=== PATIENT | female | born 1975 | race Asian ===

== ENCOUNTER 2016-03-10 12:08 | Emergency (ER) | payer MEDICAID ==
[~2016-03-10] VITALS: Ht 160 cm; Wt 49.2 kg
[~2016-03-10 12:08] MED LIST: LANTUS2P SQ; NOVOLOGP2 SQ
[2016-03-10 12:14] VITALS: BP 156/93; PULSE 104; RESP 16; TEMP 98.5; O2SAT 100
[2016-03-10 12:34] VITALS: BP 163/91; PULSE 75; RESP 18; O2SAT 99
[2016-03-10] MEDS ORDERED: HYDR-3534 PO (12:40)
[2016-03-10] MEDS ORDERED: TIMO5SOL EACH EYE (12:40)
[2016-03-10] MEDS ORDERED: LATA0.002 EACH EYE (12:40)
[2016-03-10 12:48] VITALS: O2SAT 99
[2016-03-10 12:54] LABS: AUTOMATED NEUTROPHIL # 3.7 TH/MM3 (1.8-7.7); BASOPHIL # 0.1 TH/MM3 (0-0.2); BASOPHIL % 0.7 % (0.0-2.0); EOSINOPHIL # 0.4 TH/MM3 (0-0.4); EOSINOPHIL % 5.7 % (0.0-4.0); HEMATOCRIT 36.5 % (35.0-46.0); HEMO FLAGS DIFF FINAL; LYMPH % 34.7 % (9.0-44.0); LYMPHOCYTE # 2.5 TH/MM3 (1.0-4.8); MEAN CELL VOLUME 86.5 FL (80.0-100.0); MEAN CORPUSCULAR HEMOGLOBIN 29.6 PG (27.0-34.0); MEAN CORPUSCULAR HGB CONC 34.2 % (32.0-36.0); MONO % 7.3 % (0.0-8.0); NEUT % 51.6 % (16.0-70.0); PLATELET COUNT 298 TH/MM3 (150-450); RED BLOOD COUNT 4.22 MIL/MM3 (4.00-5.30); RED CELL DISTRIBUTION WIDTH 12.1 % (11.6-17.2); WHITE BLOOD COUNT 7.2 TH/MM3 (4.0-11.0)
[2016-03-10 13:03] LABS: CHLORIDE 107 MEQ/L (98-107); POTASSIUM 3.6 MEQ/L (3.5-5.1); SODIUM (NA) 143 MEQ/L (136-145)
[2016-03-10 13:06] LABS: ANION GAP 8 MEQ/L (5-15); BLOOD UREA NITROGEN 26 MG/DL (7-18)
[2016-03-10 13:10] LABS: GLOMERULAR FILTRATION RATE 55 ML/MIN (>89)
[2016-03-10 13:23] LABS: CREATINE KINASE 40 U/L (26-192)
--- NOTE | 2016-03-10 13:27 | PD ---
HPI Chief Complaint: Cardiac Complaint Time Seen by Provider: 12:35 Travel History International Travel<30 days: No Contact w/Intl Traveler<30days: No Traveled to known affect area: No History of Present Illness HPI 41 year-old woman presents to the emergency department complaining of swelling to her feet fingers face and legs. She is a history of type 1 diabetes, tobacco use, family history of heart disease and heart failure. She is worried that she may be having heart failure or heart problems. She has had palpitations. She's also having fatigue, and burning in her legs and she walks. No history of back problems. Blood sugars been very difficult to control, to 3 and 400s over the past several weeks. She she's been under a lot of stress because she was homeless for a while, and her son as psychiatric problems She otherwise has been feeling generally well. History Past Medical History Narrative Medical Diabetes Glaucoma Tetanus Vaccination: < 5 Years Influenza Vaccination: No PNEUMOCCOCAL Vaccine (Year): 2 LMP: last month Menopausal: Yes : 2 Para: 1 Social History Alcohol Use: Yes (SOCIAL) Tobacco Use: Yes (1pk) Allergies-Medications (Allergen,Severity, Reaction): Coded Allergies: Bactrim (Verified Adverse Reaction, Severe, SWELLING AND HIVES, 03/10/16) Penicillin (Verified Adverse Reaction, Severe, Swelling, 03/10/16) Sulfa (Verified Adverse Reaction, Severe, HIVES/SWELLING, 03/10/16) PT STATES NO LONGER ALLERGIC Reported Meds & Prescriptions Reported Meds & Active Scripts Active Reported Lortab (Hydrocodone-Acetaminophen) 7.5-325 Mg Tab 1 Tab PO Q6H PRN Latanoprost Opth Drops (Latanoprost) 0.005% Drops 1 Drop EACH EYE HS Refrigerate until opened. Timolol Opth Drops 0.25 % Soln 1 Drop EACH EYE DAILY Novolog Inj (Insulin Aspart) 1,000 Unit/10 Ml Vial 0 SQ DIRECTED Sliding Scale as directed. Lantus Inj (Insulin Glargine) 1,000 Unit/10 Ml Vial 18 Units SQ DAILY Review of Systems Except as stated in HPI: all other systems reviewed are Neg Physical Exam Narrative GENERAL: Well-appearing 41 year-old woman, no acute distress. SKIN: Warm and dry. HEAD: Atraumatic. Normocephalic. CARDIOVASCULAR: Regular rate and rhythm. No murmur appreciated. RESPIRATORY: No accessory muscle use. Clear to auscultation. Breath sounds equal bilaterally. GASTROINTESTINAL: Abdomen soft, non-tender, nondistended. Hepatic and splenic margins not palpable. MUSCULOSKELETAL: No obvious deformities. No edema. NEUROLOGICAL: Awake and alert. No obvious cranial nerve deficits. Motor grossly within normal limits. Normal speech. PSYCHIATRIC: Anxious, on the verge of tears. Data Data Last Documented VS Vital Signs Date Time Temp Pulse Resp B/P Pulse Ox O2 Delivery O2 Flow Rate FiO2 03/10/16 13:44 98 18 138/82 98 Room Air 03/10/16 12:14 98.5 Orders Electrocardiogram (03/10/16 12:47) Complete Blood Count With Diff (03/10/16 12:47) Basic Metabolic Panel (Bmp) (03/10/16 12:47) Ckmb (Isoenzyme) Profile (03/10/16 12:47) Troponin I (03/10/16 12:47) Chest, Single Ap (03/10/16 12:47) Iv Access Insert/Monitor (03/10/16 12:47) Ecg Monitoring (03/10/16 12:47) Oxygen Administration (03/10/16 12:47) Oximetry (03/10/16 12:47) Labs Laboratory Tests Test 03/10/16 12:45 White Blood Count 7.2 TH/MM3 Red Blood Count 4.22 MIL/MM3 Hemoglobin 12.5 GM/DL Hematocrit 36.5 % Mean Corpuscular Volume 86.5 FL Mean Corpuscular Hemoglobin 29.6 PG Mean Corpuscular Hemoglobin 34.2 % Concent Red Cell Distribution Width 12.1 % Platelet Count 298 TH/MM3 Mean Platelet Volume 7.0 FL Neutrophils (%) (Auto) 51.6 % Lymphocytes (%) (Auto) 34.7 % Monocytes (%) (Auto) 7.3 % Eosinophils (%) (Auto) 5.7 % Basophils (%) (Auto) 0.7 % Neutrophils # (Auto) 3.7 TH/MM3 Lymphocytes # (Auto) 2.5 TH/MM3 Monocytes # (Auto) 0.5 TH/MM3 Eosinophils # (Auto) 0.4 TH/MM3 Basophils # (Auto) 0.1 TH/MM3 CBC Comment DIFF FINAL Differential Comment Sodium Level 143 MEQ/L Potassium Level 3.6 MEQ/L Chloride Level 107 MEQ/L Carbon Dioxide Level 28.0 MEQ/L Anion Gap 8 MEQ/L Blood Urea Nitrogen 26 MG/DL Creatinine 1.10 MG/DL Estimat Glomerular Filtration 55 ML/MIN Rate Random Glucose 273 MG/DL Calcium Level 8.4 MG/DL Total Creatine Kinase 40 U/L Troponin I LESS THAN 0.02 NG/ML MDM Medical Decision Making Medical Screen Exam Complete: Yes Emergency Medical Condition: Yes Interpretation(s) Review of EKG: Normal sinus rhythm at a rate of 97, normal axis, normal intervals, no ischemia. LABS: CBC is unremarkable. CMP remarkable for mild kidney disease. Troponin negative. Chest x-ray: Negative. Differential Diagnosis Anxiety, panic symptoms, dehydration, heart failure, kidney failure, other Narrative Course Medical decision making INITIAL: Is a 41 year-old woman with poorly controlled diabetes, lots of social stressors, presents complaining of swelling and concern for heart problems. We' ll check her for kidney disease. We'll check an x-ray. I don't see any evidence of heart failure. Pending a lot of this is anxiety. Some may have some today with reportedly controlled diabetes. I recommend that she increase her long-acting insulin and pain more attention to her diet because her fasting blood sugar still significantly in the 2 to 300s. Diagnosis Primary Impression: Leg swelling Additional Impressions: Chronic kidney disease Qualified Code: N18.9 - Chronic kidney disease, unspecified stage Diabetes Qualified Code: E10.22 - Type 1 diabetes mellitus with diabetic chronic kidney disease, unspecified CKD stage Additional Instructions: Focus on getting your blood sugar under better control. Drink plenty of fluids stay well-hydrated. Consider smoking cessation. Follow-up with your primary doctor as planned. Return to the emergency department for any new or worsening symptoms. Disposition: 01 DISCHARGE HOME Condition: Stable True Bazzi MD Mar 10, 2016 13:27
[2016-03-10 13:44] VITALS: BP 138/82; PULSE 98; RESP 18; O2SAT 98
--- NOTE | 2016-03-10 13:48 | RADHPO ---
EXAM DATE/TIME: 03/10/2016 13:23 [facility] COMPARISON: CHEST SINGLE AP, October 02, 2015, 15:46. INDICATIONS : Swelling to lower legs, hands, MEDICAL HISTORY : Diabetes mellitus type I. SURGICAL HISTORY : None. ENCOUNTER: Initial ACUITY: 1 month PAIN SCORE: 0/10 LOCATION: Bilateral chest FINDINGS: Portable AP view of the chest demonstrates a normal-sized cardiac silhouette. No effusion, consolidat ion, or pneumothorax is visualized. The bones and soft tissues demonstrate no acute abnormality. CONCLUSION: No acute cardiopulmonary abnormality is identified. Good Whitney MD on March 10, 2016 at 13:47 Board Certified Radiologist. This report was verified electronically.
[2016-03-10 14:56] VITALS: BP 138/74
--- NOTE | 2016-03-10 22:57 | EKG ---
Date Performed: 03/10/2016 Time Performed: 12:23:46 PTAGE: 41 years EKG: Sinus rhythm Normal ECG PREVIOUS TRACING : 08/24/2015 13.15 DOCTOR: Salomón Thrasher Interpretating Date/Time 03/10/2016 22:57:26
[2016-05-17] MEDS ORDERED: ATOR10TA15 PO (11:52)
[2016-05-17] MEDS ORDERED: ERGO1CAP10 PO (11:52)
[2016-05-17] MEDS ORDERED: LANTUS2P SQ (11:52)
[2016-05-17] MEDS ORDERED: GLUCTES12 (11:59)
[2016-07-09] MEDS ORDERED: INSU-170 SQ (09:45)
[2016-07-12] MEDS ORDERED: TIMO0.255 EACH EYE (10:28)
[2016-07-12] MEDS ORDERED: ERGO1CAP30 PO (10:28)
[2016-07-12] MEDS ORDERED: INSU-150 (10:28)
[2016-07-12] MEDS ORDERED: LANTUS2P SQ (10:59)
[2016-07-26] MEDS ORDERED: INSU-150 (15:32)
== END 2016-03-10 15:05 | disposition home or self-care (01) ==
LOC: PHED 12:08
DX: R22.43 Localized swelling, mass and lump, lower limb, bilateral (principal); N18.9 Chronic kidney disease, unspecified; E10.22 Type 1 diabetes mellitus with diabetic chronic kidney disease; R00.2 Palpitations; R53.83 Other fatigue; H40.9 Unspecified glaucoma; F17.200 Nicotine dependence, unspecified, uncomplicated; Z79.4 Long term (current) use of insulin
CPT/HCPCS: 71010; 80048; 82550; 84484; 85025; 93005

== ENCOUNTER 2016-04-02 22:45 | Emergency (ER) | payer MEDICAID ==
[~2016-04-02] VITALS: Ht 160 cm; Wt 48.0 kg
[~2016-04-02 22:45] MED LIST changes: +HYDR-3534 PO; +LATA0.002 EACH EYE; +TIMO5SOL EACH EYE
[2016-04-02 22:47] VITALS: BP 191/98; PULSE 115; RESP 16; TEMP 98.5; O2SAT 100
[2016-04-02 23:09] VITALS: BP 185/91
[2016-05-17] MEDS ORDERED: ERGO1CAP10 PO (11:52)
[2016-05-17] MEDS ORDERED: LANTUS2P SQ (11:52)
[2016-05-17] MEDS ORDERED: ATOR10TA15 PO (11:52)
[2016-05-17] MEDS ORDERED: GLUCTES12 (11:59)
[2016-07-09] MEDS ORDERED: INSU-170 SQ (09:45)
[2016-07-12] MEDS ORDERED: INSU-150 (10:28)
[2016-07-12] MEDS ORDERED: TIMO0.255 EACH EYE (10:28)
[2016-07-12] MEDS ORDERED: ERGO1CAP30 PO (10:28)
[2016-07-12] MEDS ORDERED: LANTUS2P SQ (10:59)
[2016-07-26] MEDS ORDERED: INSU-150 (15:32)
== END 2016-04-03 03:39 | disposition left against medical advice (07) ==
LOC: NED 22:45
DX: R21 Rash and other nonspecific skin eruption (principal)
CPT/HCPCS: 99281

== ENCOUNTER 2017-04-15 15:46 | Emergency (ER) | payer MEDICAID ==
[~2017-04-15] VITALS: Ht 157.5 cm; Wt 50.0 kg
[~2017-04-15 15:46] MED LIST changes: +ATOR10TA15 PO; +GLUCTES12; +INSU-150; +TIMO0.255 EACH EYE; -TIMO5SOL EACH EYE; +VITA500012 PO
[2017-04-15 16:08] VITALS: BP 140/79; PULSE 107; RESP 18; TEMP 99.7; O2SAT 99
[2017-04-15] MEDS ORDERED: ONDANSETRON ODT 4 MG TAB PO ONE (17:00)
[2017-04-15] MEDS ORDERED: KETOROLAC TROMETHAMINE 60 MG/2 ML (IM) VIAL IM ONE (17:00)
[2017-04-15] MEDS ORDERED: MORPHINE SULFATE 2 MG/ML INJ IM ONE (17:00)
[2017-04-15 17:24] LABS: BILIRUBIN, URINE NEG (NEG); BLOOD, URINE MOD (NEG); GLUCOSE,URINE NEG (NEG); KETONE, URINE NEG (NEG); NITRITE,URINE NEG (NEG); PH, URINE 5.5 (5.0-8.5); URINE LEUKOCYTE ESTERASE NEG (NEG)
[2017-04-15 17:29] LABS: URINE COLOR YELLOW (YELLW/STRAW)
[2017-04-15 17:30] LABS: BACTERIA, URINE MOD /hpf; MUCUS URINE FEW /lpf (OCC); RBC, URINE 0-3 /hpf (0-3); SQUAMOUS EPITHELIAL CELL URINE > 8 /hpf (0-5)
[2017-04-15] MEDS ORDERED: HYDR-3580 (17:41)
--- NOTE | 2017-04-15 18:01 | RADRPT ---
EXAM DATE/TIME: 04/15/2017 17:38 [facility] COMPARISON: No previous studies available for comparison. INDICATIONS : Right lower back pain. ORAL CONTRAST: No oral contrast ingested. RADIATION DOSE: 16.9 CTDIvol (mGy) MEDICAL HISTORY : Hypertension. Diabetes. SURGICAL HISTORY : Tubal ligation. section. ENCOUNTER: Initial ACUITY: 2 days PAIN SCALE: 4/10 LOCATION: Right lower quadrant TECHNIQUE: Volumetric scanning of the abdomen and pelvis was performed. Using automated exposure control and ad justment of the mA and/or kV according to patient size, radiation dose was kept as low as reasonably achievable to obtain optimal diagnostic quality images. DICOM format image data is available electro nically for review and comparison. FINDINGS: Examination of the lung bases demonstrates no abnormality. No pleural fluid is identified. No pulmona ry nodules are present. The gallbladder and pancreas are unremarkable. No intrahepatic or extrahepati c ductal dilatation is seen. The adrenal glands are unremarkable. There are multiple small bilateral nonobstructing renal stones largest measuring 3 mm. No hydronephrosis or hydroureter is seen. Examination of the pelvis demonstrates no evidence of free fluid or pelvic mass. No abnormally enlarg ed inguinal or retroperitoneal lymph nodes are present. The bladder is unremarkable. CONCLUSION: 1. No evidence of acute abdominal or pelvic process. No masses are identified. 2. Small bilateral nonobstructing renal stones Davion Ontiveros MD on April 15, 2017 at 17:57 Board Certified Radiologist. This report was verified electronically.
[2017-04-15 18:05] VITALS: BP 159/92; PULSE 98; RESP 16; O2SAT 97
--- NOTE | 2017-04-15 18:13 | RADRPT ---
EXAM DATE/TIME: 04/15/2017 17:54 [facility] COMPARISON: CHEST SINGLE AP, March 10, 2016, 13:23. INDICATIONS : Cough and right lower rib pain for 2 days. MEDICAL HISTORY : Diabetes. SURGICAL HISTORY : None. ENCOUNTER: Initial ACUITY: 2 days PAIN SCORE: 3/10 LOCATION: Right lower chest FINDINGS: A single view of the chest demonstrates the lungs to be symmetrically aerated without evidence of mas s, infiltrate or effusion. The cardiomediastinal contours are unremarkable. Osseous structures are intact. CONCLUSION: 1. No acute cardiopulmonary disease. Davion Ontiveros MD on April 15, 2017 at 18:11 Board Certified Radiologist. This report was verified electronically.
[2017-04-15] MEDS ORDERED: DICL75TA PO (18:39)
[2017-04-15] MEDS ORDERED: CIPR-9 PO (18:39)
[2017-04-15] MEDS ORDERED: ROBA500T PO (18:39)
--- NOTE | 2017-04-15 18:43 | PD ---
HPI Chief Complaint: Back/ Neck Pain or Injury Time Seen by Provider: 16:43 Travel History International Travel<30 days: No Contact w/Intl Traveler<30days: No Traveled to known affect area: No History of Present Illness HPI 42-year-old female that presents to the ED for evaluation of severe right flank pain with no injury. Per patient she's had this discomfort for the past 2 days but does become more unbearable since today. She states initially having cold- like symptoms she's been coughing a lot which makes the pain worse. She is not sure what happened to it. She denies any actual injury or trauma. He rates her pain as 8 out of 10. No urinary or bowel movement issues. She is very sensitive to touch and the back. She denies any liver or kidney issues as far she knows. No history of kidney stones. Allergies to sulfa and penicillin. Has not seen anybody for this. She took a Lortab which is prescribed to her and did not improve her symptoms which is was concerning for her. No nausea or vomiting. No other medical issues at this time. PFSH Past Medical History Hx Anticoagulant Therapy: No Arthritis: No Asthma: No Autoimmune Disease: No Blood Disorders: No Bipolar Disorder: Yes Anxiety: Yes Depression: Yes Heart Rhythm Problems: No Cancer: No Cardiovascular Problems: Yes (HTN, CHOL) High Cholesterol: Yes Chemotherapy: No Chest Pain: No Congestive Heart Failure: No COPD: No Cerebrovascular Accident: No Diabetes: Yes Patient Takes Glucophage: No Diminished Hearing: No Endocrine: Yes Gastrointestinal Disorders: Yes (OCCASIONAL GERD) GERD: Yes Glaucoma: Yes Genitourinary: No Headaches: No Hepatitis: No Hiatal Hernia: No Hypertension: No Immune Disorder: No Implanted Vascular Access Dvce: No Kidney Stones: No Musculoskeletal: No Neurologic: No Psychiatric: Yes (CLAUSTROPHOBIC) Reproductive: No Respiratory: No Immunizations Current: Yes Migraines: No Myocardial Infarction: No Radiation Therapy: No Renal Failure: No Seizures: No Sickle Cell Disease: No Sleep Apnea: No Thyroid Disease: No Ulcer: No Tetanus Vaccination: < 5 Years Influenza Vaccination: No PNEUMOCCOCAL Vaccine (Year): 2 ?: Not Menopausal: Yes : 2 Para: 1 : 1 Tubal Ligation: Yes Past Surgical History Abdominal Surgery: No AICD: No Appendectomy: No Arteriovenous Shunt: No Body Medical Devices: Shunt left eye Cardiac Surgery: No Section: Yes Cholecystectomy: No Ear Surgery: No Endocrine Surgery: No Eye Surgery: Yes (L EYE STENT REMOVED 02/24/14 , MULTIPLE, BLEB TO STENT) Genitourinary Surgery: No Gynecologic Surgery: Yes ( ENDOMETRIAL ABLATION; LEFT OOPHERECTOMY, TUBAL LIGATION) Insulin Pump: No Joint Replacement: No Neurologic Surgery: No Oral Surgery: No Pacemaker: No Thoracic Surgery: No Other Surgery: Yes (BL EYE SURGERY) Social History Alcohol Use: Yes (SOCIAL) Tobacco Use: Yes (1pk) Substance Use: No Allergies-Medications (Allergen,Severity, Reaction): Coded Allergies: Sulfa (Sulfonamide Antibiotics) (Unverified Adverse Reaction, Severe, HIVES/SWELLING, 04/15/17) PT STATES NO LONGER ALLERGIC penicillin G (Unverified Adverse Reaction, Severe, Swelling, 04/15/17) sulfamethoxazole (Unverified Adverse Reaction, Severe, SWELLING AND HIVES , 04/15/17) trimethoprim (Unverified Adverse Reaction, Severe, SWELLING AND HIVES, ) Reported Meds & Prescriptions Reported Meds & Active Scripts Active Cipro (Ciprofloxacin HCl) 500 Mg Tab 500 Mg PO BID 10 Days Robaxin (Methocarbamol) 500 Mg Tab 500 Mg PO TID Diclofenac Sodium DR (Diclofenac Sodium) 75 Mg Tabdr 75 Mg PO BID PRN Novolog Inj (Insulin Aspart) 1,000 Unit/10 Ml Vial 0 SQ DIRECTED Sliding scale: 1 unit per 15 g of carbohydrate. Lantus Inj (Insulin Glargine) 1,000 Unit/10 Ml Vial 12 Units SQ Q12HR 9 AM and 9 PM Reported Hydrocodone-Acetamin 7.5-325 (Hydrocodone/Acetaminophen) 7.5 Mg-325 Mg Tablet Unknown Dose Review of Systems Except as stated in HPI: all other systems reviewed are Neg Physical Exam Narrative GENERAL: SKIN: Warm and dry. HEAD: Atraumatic. Normocephalic. EYES: Pupils equal and round. No scleral icterus. No injection or drainage. ENT: No nasal bleeding or discharge. Mucous membranes pink and moist. Tongue is midline. No uvula deviation. NECK: Trachea midline. No JVD. CARDIOVASCULAR: Regular rate and rhythm. RESPIRATORY: No accessory muscle use. Clear to auscultation. Breath sounds equal bilaterally. GASTROINTESTINAL: Abdomen soft, non-tender, nondistended. Hepatic and splenic margins not palpable. MUSCULOSKELETAL: Extremities without clubbing, cyanosis, or edema. No obvious deformities. Patient has reproducible pain on the musculature on the right flank. No obvious CVA tenderness for heart assess as patient is very tender with any touch. No lumbar, thoracic, cervical spine tenderness to palpation. NEUROLOGICAL: Awake and alert. No obvious cranial nerve deficits. Motor grossly within normal limits. Five out of 5 muscle strength in the arms and legs. Normal speech. PSYCHIATRIC: Appropriate mood and affect; insight and judgment normal. Data Data Last Documented VS Vital Signs Date Time Temp Pulse Resp B/P (MAP) Pulse Ox O2 Delivery O2 Flow Rate FiO2 04/15/17 18:05 98 16 159/92 (114) 97 Room Air 04/15/17 16:08 99.7 Orders Orders Chest, Single Ap (04/15/17 16:56) Ct Abd/Pel W/O Iv Contrast (04/15/17 16:56) Urinalysis - C+S If Indicated (04/15/17 16:56) Ketorolac Inj (Toradol Inj) (04/15/17 17:00) Ed Urine Pregnancytest Poc (04/15/17 16:56) Morphine Inj (Morphine Inj) (04/15/17 17:00) Ondansetron Odt (Zofran Odt) (04/15/17 17:00) Urine Culture (04/15/17 17:00) Ciprofloxacin (Cipro) (04/15/17 18:45) Ed Discharge Order (04/15/17 18:33) Labs Laboratory Tests Test 04/15/17 17:00 Urine Color YELLOW Urine Turbidity CLOUDY Urine pH 5.5 Urine Specific [place] 1.020 Urine Protein 300 OR GREATER mg/dL Urine Glucose (UA) NEG mg/dL Urine Ketones NEG mg/dL Urine Occult Blood MOD Urine Nitrite NEG Urine Bilirubin NEG Urine Leukocyte Esterase NEG Urine RBC 0-3 /hpf Urine WBC 3-5 /hpf Urine Squamous Epithelial Cells > 8 /hpf Urine Bacteria MOD /hpf Urine Mucus FEW /lpf Microscopic Urinalysis Comment CULTURE INDICATED MDM Medical Decision Making Medical Screen Exam Complete: Yes Emergency Medical Condition: Yes Medical Record Reviewed: Yes Interpretation(s) UA shows some bacteria and blood CT abdomen shows some kidney stones otherwise unremarcable. CXR negative. Differential Diagnosis UTI versus pyelonephritis versus kidney stone versus flank pain versus muscle strain Narrative Course 42-year-old female that presents to the ED for evaluation of right flank pain. Patient was properly examined and was found to have signs and symptoms which. More consistent with muscle strain likely from coughing versus kidney disease. The recommend labs and imaging. Patient agrees. Labs and imaging were done and did show some bacteria in the urine which could be related to possible infection. Otherwise imaging was unremarkable other than for some kidney stones on the kidney but no obstruction. She could also be passing stones. She does have blood in her urine. At this time I believe is more related to possible infection. We'll treat with antibiotic. Given prescription for anti- inflammatory and muscle relaxant as patient already takes pain medications. She was given pain medication here with some relief. Told to follow up with PCP. See ED worsening symptoms. Diagnosis Primary Impression: Cystitis Additional Impression: Flank pain, acute Patient Instructions: General Instructions Additional Instructions: Take medications as prescribed. Follow-up with PCP. See ED for any worsening symptoms. Do not drink or drive while taking pain medication. Apply ice or heat as needed for pain Med/Other Pt SpecificInfo: Prescription(s) given Scripts Ciprofloxacin (Cipro) 500 Mg Tab 500 MG PO BID for Infection for 10 Days, #20 TAB 0 Refills Prov: Josh Mccartney MD 04/15/17 Methocarbamol (Robaxin) 500 Mg Tab 500 MG PO TID for Muscle Spasm, #20 TAB 0 Refills Prov: Josh Mccartney MD 04/15/[address] (Diclofenac Sodium DR) 75 Mg Tabdr 75 MG PO BID Y for PAIN SCALE 1 TO 10, #20 TAB 0 Refills Prov: Josh Mccartney MD 04/15/17 Disposition: 01 DISCHARGE HOME Condition: Stable Jose A Mcgowan Apr 15, 2017 18:43
[2017-04-15] MEDS ORDERED: BENZ100 PO (18:44)
[2017-04-15] MEDS ORDERED: CIPROFLOXACIN 500 MG TAB PO ONE (18:45)
[2017-04-16] MEDS ORDERED: PROM25TA10 PO (17:10)
== END 2017-04-15 19:04 | disposition home or self-care (01) ==
LOC: PHEFT 15:46
DX: N30.90 Cystitis, unspecified without hematuria (principal); R10.9 Unspecified abdominal pain; I10 Essential (primary) hypertension; E78.00 Pure hypercholesterolemia, unspecified; E11.9 Type 2 diabetes mellitus without complications; K21.9 Gastro-esophageal reflux disease without esophagitis; F31.9 Bipolar disorder, unspecified; F17.210 Nicotine dependence, cigarettes, uncomplicated; Z79.4 Long term (current) use of insulin
CPT/HCPCS: 71045; 74176; 81001; 84703; 87086; 96372; 99285; J1885; J2270

== ENCOUNTER 2017-04-16 14:15 | Emergency (ER) | payer MEDICAID ==
[~2017-04-16] VITALS: Ht 157.5 cm; Wt 52.0 kg
[~2017-04-16 14:15] MED LIST changes: +BENZ100 PO; +CIPR-9 PO; +DICL75TA PO; +HYDR-3580; +ROBA500T PO
[2017-04-16 14:19] VITALS: BP 109/68; PULSE 103; RESP 16; TEMP 98.6; O2SAT 97
[2017-04-16] MEDS ORDERED: SODIUM CHLORIDE 0.9% FLUSH 10 ML FLUSH IV FLUSH PRN (14:45)
[2017-04-16] MEDS ORDERED: SODIUM CHLOR 0.9% 1000 ML INJ 1,000 ML IV SCH (14:54)
[2017-04-16] MEDS ORDERED: ONDANSETRON HCL 4 MG/2 ML VIAL IVP ONE (15:00)
[2017-04-16] MEDS ORDERED: KETOROLAC TROMETHAMINE 30 MG/ML (IVP) VIAL IVP ONE (15:00)
[2017-04-16 15:06] LABS: AUTOMATED NEUTROPHIL # 1.9 TH/MM3 (1.8-7.7); BASOPHIL # 0.1 TH/MM3 (0-0.2); BASOPHIL % 1.5 % (0.0-2.0); EOSINOPHIL # 0.1 TH/MM3 (0-0.4); EOSINOPHIL % 2.2 % (0.0-4.0); HEMOGLOBIN 12.9 GM/DL (11.6-15.3); LYMPH % 30.1 % (9.0-44.0); LYMPHOCYTE # 1.2 TH/MM3 (1.0-4.8); MEAN CORPUSCULAR HEMOGLOBIN 28.9 PG (27.0-34.0); MEAN CORPUSCULAR HGB CONC 33.2 % (32.0-36.0); MEAN PLATELET VOLUME 7.9 FL (7.0-11.0); MONO % 13.9 % (0.0-8.0); MONOCYTE # 0.5 TH/MM3 (0-0.9); NEUT % 52.3 % (16.0-70.0); PLATELET COUNT 177 TH/MM3 (150-450); RED BLOOD COUNT 4.48 MIL/MM3 (4.00-5.30); RED CELL DISTRIBUTION WIDTH 12.4 % (11.6-17.2); WHITE BLOOD COUNT 3.8 TH/MM3 (4.0-11.0)
[2017-04-16 15:15] LABS: CHLORIDE 99 MEQ/L (98-107); SODIUM (NA) 134 MEQ/L (136-145)
[2017-04-16 15:19] LABS: ALBUMIN 3.1 GM/DL (3.4-5.0); BICARBONATE 27.3 MEQ/L (21.0-32.0); CALCIUM 8.2 MG/DL (8.5-10.1); GLUCOSE,RANDOM 315 MG/DL (74-106)
[2017-04-16 15:20] LABS: BLOOD UREA NITROGEN 30 MG/DL (7-18)
[2017-04-16 15:22] LABS: ALT (GPT) 20 U/L (10-53); AST (GOT) 12 U/L (15-37); GLOMERULAR FILTRATION RATE 38 ML/MIN (>89)
[2017-04-16 15:24] LABS: TOTAL BILIRUBIN ADULT 0.3 MG/DL (0.2-1.0); TOTAL PROTEIN 6.9 GM/DL (6.4-8.2)
[2017-04-16 15:25] LABS: ALKALINE PHOSPHATASE 72 U/L (45-117)
[2017-04-16 15:44] LABS: BILIRUBIN, URINE NEG (NEG); BLOOD, URINE MOD (NEG); GLUCOSE,URINE 1000 OR GREATER mg/dL (NEG); KETONE, URINE 15 mg/dL (NEG); NITRITE,URINE NEG (NEG); PH, URINE 5.5 (5.0-8.5); URINE LEUKOCYTE ESTERASE NEG (NEG)
[2017-04-16 15:54] LABS: URINE COLOR YELLOW (YELLW/STRAW)
[2017-04-16 15:55] LABS: BACTERIA, URINE FEW /hpf; WBC, URINE 0-2 /hpf (0-5)
[2017-04-16] MEDS ORDERED: MORPHINE SULFATE 4 MG/ML INJ IV PUSH ONE (16:00)
--- NOTE | 2017-04-16 16:08 | PD ---
HPI Chief Complaint: Flank pain Time Seen by Provider: 14:33 Travel History International Travel<30 days: No Contact w/Intl Traveler<30days: No Traveled to known affect area: No History of Present Illness HPI This is a 42-year-old female who returns for right flank pain. She states that she has had a day and a half of pain in the right flank/mid back. She was seen in the emergency department yesterday and had urinalysis and CT abdomen and pelvis without IV contrast. She states that she continues to have the pain despite taking diclofenac and muscle relaxer. This morning, she developed nonbilious, nonbloody emesis after taking diclofenac. She did not take her blood sugar or her insulin today. She denies fever, chills. Patient states that she had recently been coughing and is not sure if she pulled a muscle. No urinary urgency, frequency, dysuria, hematuria. No diarrhea. No vaginal discharge or bleeding. No focal weakness, numbness, tingling, saddle paresthesias, bowel or bladder dysfunction. PFSH Past Medical History Hx Anticoagulant Therapy: No Arthritis: No Asthma: No Autoimmune Disease: No Blood Disorders: No Bipolar Disorder: Yes Anxiety: Yes Depression: Yes Heart Rhythm Problems: No Cancer: No Cardiovascular Problems: Yes (HTN, CHOL) High Cholesterol: Yes Chemotherapy: No Chest Pain: No Congestive Heart Failure: No COPD: No Cerebrovascular Accident: No Diabetes: Yes Patient Takes Glucophage: No Diminished Hearing: No Endocrine: Yes Gastrointestinal Disorders: Yes (OCCASIONAL GERD) GERD: Yes Glaucoma: Yes Genitourinary: No Headaches: No Hepatitis: No Hiatal Hernia: No Hypertension: No Immune Disorder: No Implanted Vascular Access Dvce: No Kidney Stones: No Musculoskeletal: No Neurologic: No Psychiatric: Yes (CLAUSTROPHOBIC) Reproductive: No Respiratory: No Immunizations Current: Yes Migraines: No Myocardial Infarction: No Radiation Therapy: No Renal Failure: No Seizures: No Sickle Cell Disease: No Sleep Apnea: No Thyroid Disease: No Ulcer: No PNEUMOCCOCAL Vaccine (Year): 2 ?: Not Menopausal: Yes : 2 Para: 1 : 1 Tubal Ligation: Yes Past Surgical History Abdominal Surgery: No AICD: No Appendectomy: No Arteriovenous Shunt: No Body Medical Devices: Shunt left eye Cardiac Surgery: No Section: Yes Cholecystectomy: No Ear Surgery: No Endocrine Surgery: No Eye Surgery: Yes (L EYE STENT REMOVED 02/24/14 , MULTIPLE, BLEB TO STENT) Genitourinary Surgery: No Gynecologic Surgery: Yes ( ENDOMETRIAL ABLATION; LEFT OOPHERECTOMY, TUBAL LIGATION) Insulin Pump: No Joint Replacement: No Neurologic Surgery: No Oral Surgery: No Pacemaker: No Thoracic Surgery: No Other Surgery: Yes (BL EYE SURGERY) Social History Alcohol Use: Yes (SOCIAL) Tobacco Use: Yes (1pk) Substance Use: No Allergies-Medications (Allergen,Severity, Reaction): Coded Allergies: Sulfa (Sulfonamide Antibiotics) (Unverified Adverse Reaction, Severe, HIVES/SWELLING, 04/16/17) PT STATES NO LONGER ALLERGIC penicillin G (Unverified Adverse Reaction, Severe, Swelling, 04/16/17) sulfamethoxazole (Unverified Adverse Reaction, Severe, SWELLING AND HIVES , 04/16/17) trimethoprim (Unverified Adverse Reaction, Severe, SWELLING AND HIVES, ) Reported Meds & Prescriptions Reported Meds & Active Scripts Active Phenergan (Promethazine HCl) 25 Mg Tablet 25 Mg PO Q6H PRN Tessalon Perles (Benzonatate) 100 Mg Cap 100 Mg PO TID PRN Cipro (Ciprofloxacin HCl) 500 Mg Tab 500 Mg PO BID 10 Days Robaxin (Methocarbamol) 500 Mg Tab 500 Mg PO TID Diclofenac Sodium DR (Diclofenac Sodium) 75 Mg Tabdr 75 Mg PO BID PRN Novolog Inj (Insulin Aspart) 1,000 Unit/10 Ml Vial 0 SQ DIRECTED Sliding scale: 1 unit per 15 g of carbohydrate. Lantus Inj (Insulin Glargine) 1,000 Unit/10 Ml Vial 12 Units SQ Q12HR 9 AM and 9 PM Reported Hydrocodone-Acetamin 7.5-325 (Hydrocodone/Acetaminophen) 7.5 Mg-325 Mg Tablet Unknown Dose Review of Systems Except as stated in HPI: all other systems reviewed are Neg Physical Exam Narrative GENERAL: Alert, well nourished, well appearing patient resting on the bed in no acute distress. Vital Signs reviewed SKIN: Focused skin assessment warm/dry. No vesicular lesions noted on back HEAD: Atraumatic. Normocephalic. EYES: Pupils equal and round. No scleral icterus. No injection or drainage. ENT: No nasal bleeding or discharge. Mucous membranes pink and moist. NECK: Trachea midline. No JVD. Spontaneous, painless full range of motion with no meningismus CARDIOVASCULAR: Regular rate and rhythm. No murmur appreciated. Extremities warm and well perfused with bounding peripheral pulses RESPIRATORY: No accessory muscle use. Clear to auscultation. Breath sounds equal bilaterally. Breathing easily and speaking in full sentences GASTROINTESTINAL: Abdomen soft, mildly tender in right mid abdomen, nondistended. Normal bowel sounds. No rigid, rebound, guarding. Mild right CVA tenderness/paraspinal tenderness. No tenderness along midline thoracic or lumbar spine MUSCULOSKELETAL: No obvious deformities. No clubbing. No cyanosis. No edema. Compartments are soft NEUROLOGICAL: Awake and alert. No obvious cranial nerve deficits. Motor grossly within normal limits. Normal speech. Sensation intact. Normal gait Data Data Last Documented VS Vital Signs Date Time Temp Pulse Resp B/P (MAP) Pulse Ox O2 Delivery O2 Flow Rate FiO2 04/16/17 16:32 99 20 149/95 (113) 99 04/16/17 14:19 98.6 Orders Orders Complete Blood Count With Diff (04/16/17 14:42) Comprehensive Metabolic Panel (04/16/17 14:42) Lipase (04/16/17 14:42) Urinalysis - C+S If Indicated (04/16/17 14:42) Iv Access Insert/Monitor (04/16/17 14:42) Sodium Chloride 0.9% Flush (Ns Flush) (04/16/17 14:45) Ct Abd/Pel W Iv Contrast(Rout) (04/16/17 14:54) Ondansetron Inj (Zofran Inj) (04/16/17 15:00) Sodium Chlor 0.9% 1000 Ml Inj (Ns 1000 M (04/16/17 14:54) Ketorolac Inj (Toradol Inj) (04/16/17 15:00) Ed Urine Pregnancytest Poc (04/16/17 14:54) Morphine Inj (Morphine Inj) (04/16/17 16:00) Iodixanol 320 Inj (Rad Ct) (Visipaque 32 (04/16/17 16:12) Insulin Human Regular Inj (Novolin R Inj (04/16/17 17:00) Ed Discharge Order (04/16/17 17:43) Labs Laboratory Tests Test 04/16/17 15:00 04/16/17 15:40 White Blood Count 3.8 TH/MM3 Red Blood Count 4.48 MIL/MM3 Hemoglobin 12.9 GM/DL Hematocrit 39.0 % Mean Corpuscular Volume 87.0 FL Mean Corpuscular Hemoglobin 28.9 PG Mean Corpuscular Hemoglobin Concent 33.2 % Red Cell Distribution Width 12.4 % Platelet Count 177 TH/MM3 Mean Platelet Volume 7.9 FL Neutrophils (%) (Auto) 52.3 % Lymphocytes (%) (Auto) 30.1 % Monocytes (%) (Auto) 13.9 % Eosinophils (%) (Auto) 2.2 % Basophils (%) (Auto) 1.5 % Neutrophils # (Auto) 1.9 TH/MM3 Lymphocytes # (Auto) 1.2 TH/MM3 Monocytes # (Auto) 0.5 TH/MM3 Eosinophils # (Auto) 0.1 TH/MM3 Basophils # (Auto) 0.1 TH/MM3 CBC Comment DIFF FINAL Differential Comment Blood Urea Nitrogen 30 MG/DL Creatinine 1.50 MG/DL Random Glucose 315 MG/DL Total Protein 6.9 GM/DL Albumin 3.1 GM/DL Calcium Level 8.2 MG/DL Alkaline Phosphatase 72 U/L Aspartate Amino Transf (AST/SGOT) 12 U/L Alanine Aminotransferase (ALT/SGPT) 20 U/L Total Bilirubin 0.3 MG/DL Sodium Level 134 MEQ/L Potassium Level 4.6 MEQ/L Chloride Level 99 MEQ/L Carbon Dioxide Level 27.3 MEQ/L Anion Gap 8 MEQ/L Estimat Glomerular Filtration Rate 38 ML/MIN Lipase 86 U/L Urine Color YELLOW Urine Turbidity CLOUDY Urine pH 5.5 Urine Specific Thicket 1.020 Urine Protein 100 mg/dL Urine Glucose (UA) 1000 OR GREATER mg/dL Urine Ketones 15 mg/dL Urine Occult Blood MOD Urine Nitrite NEG Urine Bilirubin NEG Urine Leukocyte Esterase NEG Urine WBC 0-2 /hpf Urine Squamous Epithelial Cells 6-8 /hpf Urine Bacteria FEW /hpf Microscopic Urinalysis Comment CULT NOT INDICATED MDM Medical Decision Making Medical Screen Exam Complete: Yes Emergency Medical Condition: Yes Medical Record Reviewed: Yes Interpretation(s) Last 24 hours Impressions Abdomen/Pelvis CT 04/16/17 1454 Signed Impressions: Service Date/Time: Sunday, April 16, 2017 16:06 - CONCLUSION: No acute CT findings in the abdomen or pelvis. Good Lobo MD Laboratory Tests Test 04/16/17 15:00 04/16/17 15:40 White Blood Count 3.8 TH/MM3 Red Blood Count 4.48 MIL/MM3 Hemoglobin 12.9 GM/DL Hematocrit 39.0 % Mean Corpuscular Volume 87.0 FL Mean Corpuscular Hemoglobin 28.9 PG Mean Corpuscular Hemoglobin Concent 33.2 % Red Cell Distribution Width 12.4 % Platelet Count 177 TH/MM3 Mean Platelet Volume 7.9 FL Neutrophils (%) (Auto) 52.3 % Lymphocytes (%) (Auto) 30.1 % Monocytes (%) (Auto) 13.9 % Eosinophils (%) (Auto) 2.2 % Basophils (%) (Auto) 1.5 % Neutrophils # (Auto) 1.9 TH/MM3 Lymphocytes # (Auto) 1.2 TH/MM3 Monocytes # (Auto) 0.5 TH/MM3 Eosinophils # (Auto) 0.1 TH/MM3 Basophils # (Auto) 0.1 TH/MM3 CBC Comment DIFF FINAL Differential Comment Blood Urea Nitrogen 30 MG/DL Creatinine 1.50 MG/DL Random Glucose 315 MG/DL Total Protein 6.9 GM/DL Albumin 3.1 GM/DL Calcium Level 8.2 MG/DL Alkaline Phosphatase 72 U/L Aspartate Amino Transf (AST/SGOT) 12 U/L Alanine Aminotransferase (ALT/SGPT) 20 U/L Total Bilirubin 0.3 MG/DL Sodium Level 134 MEQ/L Potassium Level 4.6 MEQ/L Chloride Level 99 MEQ/L Carbon Dioxide Level 27.3 MEQ/L Anion Gap 8 MEQ/L Estimat Glomerular Filtration Rate 38 ML/MIN Lipase 86 U/L Urine Color YELLOW Urine Turbidity CLOUDY Urine pH 5.5 Urine Specific Thicket 1.020 Urine Protein 100 mg/dL Urine Glucose (UA) 1000 OR GREATER mg/dL Urine Ketones 15 mg/dL Urine Occult Blood MOD Urine Nitrite NEG Urine Bilirubin NEG Urine Leukocyte Esterase NEG Urine WBC 0-2 /hpf Urine Squamous Epithelial Cells 6-8 /hpf Urine Bacteria FEW /hpf Microscopic Urinalysis Comment CULT NOT INDICATED Differential Diagnosis UTI, DKA, dehydration, gastritis, appendicitis, cholecystitis, musculoskeletal pain Narrative Course IV access was established. Labs, imaging were performed. Patient was given IV fluids, pain and nausea medication with improvement in her pain. Upon reexamination at 4:55 PM: She is resting comfortably on the bed no acute distress. She has had no vomiting in the emergency department. She was given 4 units of insulin for her hyperglycemia. She is not in DKA. I reviewed the results of the workup with her. Plan for discharge with supportive care, addition of Phenergan to her muscle relaxer. She does take chronic pain medication at home. Patient will need close follow-up with her primary physician within 2 days. Patient understands the importance of close outpatient follow-up. She understands she may require further testing and treatment as an outpatient. She understands strict return indications. She is comfortable with this plan and eager to go home. Diagnosis Primary Impression: Right flank pain Referrals: Primary Care Physician 2 days Patient Instructions: Diabetic Hyperglycemia (DC), Flank Pain (ED), General Instructions Additional Instructions: Drink plenty of fluids to stay well hydrated. Follow strict diabetic diet. Continue current home medication including your insulin. Use Phenergan for nausea. You must follow-up with your primary physician within 2 days. Call today to make an appointment. Med/Other Pt SpecificInfo: Prescription(s) given Scripts Promethazine (Phenergan) 25 Mg Tablet 25 MG PO Q6H Y for NAUSEA OR VOMITING, #10 TAB 0 Refills Prov: Nelda Pritchett MD 04/16/17 Disposition: 01 DISCHARGE HOME Condition: Stable Nelda Pritchett MD Apr 16, 2017 16:08
[2017-04-16] MEDS ORDERED: IODIXANOL 320 MG/ML 10 ML VIAL (for Rad CT) IVCONTRAST ONE (16:12)
[2017-04-16 16:32] VITALS: BP 149/95; PULSE 99; RESP 20; O2SAT 99
--- NOTE | 2017-04-16 16:33 | RADRPT ---
EXAM DATE/TIME: 04/16/2017 16:06 [facility] COMPARISON: No previous studies available for comparison. INDICATIONS : Abdominal pain with nausea and vomiting. IV CONTRAST: 50 cc Visipaque (iodixanol) IV ORAL CONTRAST: No oral contrast ingested. RADIATION DOSE: 4.59 CTDIvol (mGy) MEDICAL HISTORY : Renal calculi. Hypertension. Diabetes mellitus type 1. SURGICAL HISTORY : Tubal ligation. section.Oopherectomy, left. ENCOUNTER: Initial ACUITY: 1 week PAIN SCALE: 8/10 LOCATION: abdomen TECHNIQUE: Volumetric scanning of the abdomen and pelvis was performed. Using automated exposure control and ad justment of the mA and/or kV according to patient size, radiation dose was kept as low as reasonably achievable to obtain optimal diagnostic quality images. DICOM format image data is available electro nically for review and comparison. FINDINGS: LOWER LUNGS: The visualized lower lungs are clear. LIVER: Homogeneous density without lesion. There is no dilation of the biliary tree. No calcified gallston es. SPLEEN: Normal size without lesion. PANCREAS: Within normal limits. KIDNEYS: Normal in size and shape. There is no mass, stone or hydronephrosis. ADRENAL GLANDS: Within normal limits. VASCULAR: There is no aortic aneurysm. BOWEL/MESENTERY: The stomach, small bowel, and colon demonstrate no acute abnormality. There is no free intraperitone al air or fluid. ABDOMINAL WALL: Within normal limits. RETROPERITONEUM: There is no lymphadenopathy. BLADDER: No wall thickening or mass. REPRODUCTIVE: Within normal limits. INGUINAL: There is no lymphadenopathy or hernia. MUSCULOSKELETAL: Within normal limits for patient age. CONCLUSION: No acute CT findings in the abdomen or pelvis. Good Lobo MD on April 16, 2017 at 16:29 Board Certified Radiologist. This report was verified electronically.
[2017-04-16] MEDS ORDERED: INSULIN HUMAN REGULAR 1,000 UNITS/10 ML VIAL SQ ONE (17:00)
[2017-04-16] MEDS ORDERED: PROM25TA10 PO (17:10)
== END 2017-04-16 18:11 | disposition home or self-care (01) ==
LOC: PHED 14:15
DX: R10.9 Unspecified abdominal pain (principal); E11.65 Type 2 diabetes mellitus with hyperglycemia; I10 Essential (primary) hypertension; E78.00 Pure hypercholesterolemia, unspecified; F31.9 Bipolar disorder, unspecified; F41.9 Anxiety disorder, unspecified; F17.210 Nicotine dependence, cigarettes, uncomplicated; Z88.2 Allergy status to sulfonamides; Z88.0 Allergy status to penicillin; Z79.4 Long term (current) use of insulin; Z79.899 Other long term (current) drug therapy
CPT/HCPCS: 74177; 80053; 81001; 83690; 84703; 85025; 96361; 96372; 96374; 96375; 99284; J1815; J1885; J2270; J2405; J7030; Q9967